=== PATIENT | female | born 1995 | race Caucasian/White ===

== ENCOUNTER 2021-04-10 19:09 | Inpatient (IN) | payer MEDICAID ==
[~2021-04-10] VITALS: Ht 162.6 cm; Wt 99.8 kg
[2021-04-10] MEDS: LACTATED RINGERS 1,000 ML IV SCH ×2 (20:59→21:00)
[2021-04-10] MEDS ORDERED: RHO(D) IMMUNE GLOBULIN 300 MCG/SYR IM ONE (21:00)
[2021-04-10 21:08] LABS: BASOPHILS % 0.3 % (0.0-2.0); EOSINOPHILS % 0.1 % (0.0-5.0); HEMATOCRIT. 36.7 % (36.0-48.0); HEMOGLOBIN. 12.1 g/dL (12.0-16.0); LYMPHOCYTES % 29.2 % (20.0-50.0); MEAN CORPUSCULAR HEMOGLOBIN 27.6 pg (28.0-32.0); MEAN CORPUSCULAR VOLUME 83.6 fL (81.0-99.0); MEAN PLATELET VOLUME 10.3 fl (7.4-10.4); MONOCYTES % 5.7 % (2.0-8.0); NEUTROPHILS % 64.7 % (40.0-76.0); PLATELET 212 x1000/uL (130-400); RED BLOOD CELL COUNT 4.39 mill/uL (4.2-5.4); RED CELL DISTRIBUTION WIDTH 14.2 % (11.6-14.6)
[2021-04-10] MEDS ORDERED: FAMOTIDINE 20MG/2ML VIAL IV NR (21:15)
[2021-04-10] MEDS ORDERED: LACTATED RINGERS 1,000 ML IV SCH (21:15)
[2021-04-10 21:22] LABS: INR 0.9; PARTIAL THROMBOPLASTIN TIME 27.6 sec (23.4-31.0); PROTHROMBIN TIME 9.8 sec (9.6-11.0)
[2021-04-10 21:49] LABS: HEPATITIS B SURFACE ANTIGEN NEGATIVE
[2021-04-10 21:59] LABS: CLARITY URINE CLOUDY (CLEAR); COLOR URINE YELLOW (YELLOW); KETONES URINE 4+ (NEGATIVE); LEUKOCYTE ESTERASE URINE 1+ (NEGATIVE); NITRITE URINE POSITIVE (NEGATIVE); OCCULT BLOOD URINE NEGATIVE (NEGATIVE); PH URINE 6.5 (4.5-8.0); PROTEIN URINE NEGATIVE (NEGATIVE); SPECIFIC GRAVITY URINE 1.019 (1.005-1.030); UROBILINOGEN URINE 0.2 E.U./dL (0.2-1.0)
[2021-04-10] MEDS ORDERED: BISACODYL 10MG SUPP PR PRN (22:15)
[2021-04-10] MEDS ORDERED: HEMORRHOIDAL SUPP PR PRN (22:15)
[2021-04-10] MEDS ORDERED: HYDROCODONE/ACETAMINOPHEN 5/325MG TABLET PO PRN (22:15)
[2021-04-10] MEDS ORDERED: IBUPROFEN 400MG TABLET PO PRN (22:15)
[2021-04-10] MEDS ORDERED: LANOLIN OINT 7GM TUBE TOP PRN (22:15)
[2021-04-10] MEDS ORDERED: ONDANSETRON HCL 4MG/2ML INJ IV PRN (22:15)
[2021-04-10] MEDS ORDERED: RHO(D) IMMUNE GLOBULIN 300 MCG/SYR IM PRN (22:15)
[2021-04-10 22:18] LABS: *AMPHETAMINES SCREEN URINE NEGATIVE (NEGATIVE); *BARBITURATES SCREEN URINE NEGATIVE (NEGATIVE); *COCAINE SCREEN URINE NEGATIVE (NEGATIVE); CANNABINOID URINE SCREEN NEGATIVE (NEGATIVE); METHADONE URINE SCREEN NEGATIVE (NEGATIVE); OPIATES URINE SCREEN NEGATIVE (NEGATIVE); PHENCYCLIDINE URINE SCREEN NEGATIVE (NEGATIVE)
[2021-04-10 22:19] LABS: *BENZODIAZEPINES SCREEN URINE NEGATIVE (NEGATIVE)
[2021-04-10] MEDS ORDERED: MORPHINE SULFATE/PF 1MG/ML 10ML AMP ONE (22:23)
[2021-04-10] MEDS ORDERED: PHENYLEPHRINE HCL 10 MG/ML 1ML (IV VIAL) IV ONE (22:31)
[2021-04-10] MEDS ORDERED: DEXAMETHASONE 4MG/ML 1ML VIAL ONE (22:39)
[2021-04-10] MEDS ORDERED: OXYTOCIN 10 UNITS/ML 1ML ONE ×2 (22:39→23:05)
[2021-04-10] MEDS ORDERED: EPHEDRINE SULFATE 50MG/ML VIAL ONE (22:39)
[2021-04-10] MEDS ORDERED: ONDANSETRON HCL 4MG/2ML INJ ONE (22:39)
[2021-04-10] MEDS ORDERED: CEFAZOLIN SODIUM 1000MG/VIAL ONE (22:39)
[2021-04-10] MEDS ORDERED: NALOXONE HCL 0.4 MG/ML 1ML VIAL IV PRN (23:00)
[2021-04-10] MEDS ORDERED: METOCLOPRAMIDE HCL 10MG/2ML VIAL ONE (23:40)
[2021-04-10] MEDS ORDERED: DIPHENHYDRAMINE 50MG/ML VIAL ONE (23:44)
[2021-04-11] MEDS: DEXT 5%/LR + PITOCIN 20UNITS/L 1,000 ML IV SCH ×2 (01:42→06:15)
[2021-04-11 01:55] VITALS: BP 122/71
[2021-04-11 05:10] VITALS: BP 113/74
[2021-04-11 07:30] LABS: BASOPHILS % 0.1 % (0.0-2.0); HEMATOCRIT. 34.3 % (36.0-48.0); HEMOGLOBIN. 11.4 g/dL (12.0-16.0); LYMPHOCYTES % 12.1 % (20.0-50.0); MEAN CORPUSCULAR HEMOGLOBIN 27.3 pg (28.0-32.0); MEAN CORPUSCULAR VOLUME 82.1 fL (81.0-99.0); MEAN PLATELET VOLUME 10.1 fl (7.4-10.4); MONOCYTES % 4.1 % (2.0-8.0); NEUTROPHILS % 83.7 % (40.0-76.0); PLATELET 190 x1000/uL (130-400); RED BLOOD CELL COUNT 4.17 mill/uL (4.2-5.4); RED CELL DISTRIBUTION WIDTH 14.1 % (11.6-14.6)
[2021-04-11] MEDS: FERROUS SULFATE 325MG TABLET PO SCH ×3 (07:30→18:00)
[2021-04-11 07:40] VITALS: BP 117/69
[2021-04-11] MEDS: MAGNESIUM/ALUMINUM HYDROXIDE/SIMETHICONE 30ML UDC PO SCH ×4 (08:30→21:13)
[2021-04-11] MEDS: PRENATAL VIT/FE FUMARATE/FA TABLET PO SCH (08:30)
[2021-04-11] MEDS: SIMETHICONE 80MG TABLET CHEW PO SCH ×4 (08:30→21:12)
[2021-04-11] MEDS: IBUPROFEN 800MG TABLET PO PRN ×2 (14:25→22:57)
[2021-04-11 16:00] VITALS: BP 111/72
[2021-04-11] MEDS ORDERED: DOCUSATE SODIUM 100MG CAPSULE PO SCH (21:00)
[2021-04-11 22:00] VITALS: BP 99/66
[2021-04-12 05:55] VITALS: BP 109/71
[2021-04-12 08:00] VITALS: BP 112/68
[2021-04-12] MEDS: IBUPROFEN 800MG TABLET PO PRN ×2 (11:08→21:05)
[2021-04-12] MEDS: FERROUS SULFATE 325MG TABLET PO SCH (11:08)
[2021-04-12] MEDS: SIMETHICONE 80MG TABLET CHEW PO SCH ×2 (11:08→21:00)
[2021-04-12] MEDS: PRENATAL VIT/FE FUMARATE/FA TABLET PO SCH (11:08)
[2021-04-12 16:00] VITALS: BP 114/73
[2021-04-12] MEDS: MAGNESIUM/ALUMINUM HYDROXIDE/SIMETHICONE 30ML UDC PO SCH (21:00)
[2021-04-12 22:00] VITALS: BP 122/81
[2021-04-13 06:00] VITALS: BP 119/78
[2021-04-13] MEDS ORDERED: PREN1TAB23 MT (06:07)
[2021-04-13] MEDS ORDERED: IBUP-2030 MT (06:07)
[2021-04-13] MEDS: MAGNESIUM/ALUMINUM HYDROXIDE/SIMETHICONE 30ML UDC PO SCH (07:30)
[2021-04-13] MEDS: FERROUS SULFATE 325MG TABLET PO SCH (07:30)
[2021-04-13] MEDS: SIMETHICONE 80MG TABLET CHEW PO SCH (08:00)
[2021-04-13 08:08] VITALS: BP 123/85
[2021-04-13] MEDS: PRENATAL VIT/FE FUMARATE/FA TABLET PO SCH (08:33)
== END 2021-04-13 11:15 | disposition home or self-care (01) | DRG 540 ==
LOC: OBSVTOIN 19:09 → 8 EST LDRP 19:09 → 8EST 04-11 01:55
PROVIDERS: ADMIT Obstetrics & Gynecology; ATTEND Obstetrics & Gynecology
PROC: 10D00Z1 Extraction of Products of Conception, Low, Open Approach (ICD-10-PCS; principal; 2021-04-10)
DX: O34.211 Maternal care for low transverse scar from previous cesarean delivery (principal); O41.03X0 Oligohydramnios, third trimester, not applicable or unspecified; Z20.822 Contact with and (suspected) exposure to COVID-19; Z3A.38 38 weeks gestation of pregnancy; Z37.0 Single live birth
CPT/HCPCS: 36415; 80305; 81003; 85025; 86592; 86593; 86703; 86762; 86780; 86850; 86900; 87340; 87426; 88307; 99281; J0690; J1100; J1200; J2274; J2370; J2405; J2590; J2765; J3490